=== PATIENT | male | born 1950 | race Caucasian/White ===

== ENCOUNTER → 2021-09-08 | Outpatient (CLI) | payer OTHER ==
[~2021-09-08] MED LIST: ARNUITY ELLIPT50 MCG NASAL; CARDIZEM CD120 MG PO; CEPHALEXIN 250250 M1 PO; DOXYCYCLINE 10100 MG PO; LIPITOR 10 MG10 M1 PO; PRILOSEC OTC20 MG PO; PRINIVIL20 M1 PO; SINGULAIR 10 MG10 M1 PO
== END ==
LOC: ULTRA 11:07
PROVIDERS: ATTEND Family Medicine
DX: R60.0 Localized edema (principal)

== ENCOUNTER → 2021-09-08 | Outpatient (CLI) | payer OTHER | LOC: CAT 09-01 15:54 | PROVIDERS: ATTEND Family Medicine | DX: Z13.6 Encounter for screening for cardiovascular disorders (principal); I25.10 Atherosclerotic heart disease of native coronary artery without angina pectoris; E78.00 Pure hypercholesterolemia, unspecified ==

== ENCOUNTER → 2021-09-22 | Outpatient (CLI) | payer OTHER | LOC: SJCVC 13:13 | PROVIDERS: ATTEND Internal Medicine | DX: R94.31 Abnormal electrocardiogram [ECG] [EKG] (principal); I44.0 Atrioventricular block, first degree; I45.10 Unspecified right bundle-branch block; R93.1 Abnormal findings on diagnostic imaging of heart and coronary circulation; E78.5 Hyperlipidemia, unspecified; I10 Essential (primary) hypertension; G47.30 Sleep apnea, unspecified; Z13.220 Encounter for screening for lipoid disorders; Z79.899 Other long term (current) drug therapy; Z88.2 Allergy status to sulfonamides; Z88.8 Allergy status to other drugs, medicaments and biological substances ==

== ENCOUNTER → 2021-10-08 | Outpatient (CLI) | payer OTHER | LOC: SJCVCIMAG 10:59 | PROVIDERS: ATTEND Internal Medicine | DX: I08.8 Other rheumatic multiple valve diseases (principal); I49.3 Ventricular premature depolarization; R00.0 Tachycardia, unspecified; I44.0 Atrioventricular block, first degree; R93.1 Abnormal findings on diagnostic imaging of heart and coronary circulation; E78.5 Hyperlipidemia, unspecified; G47.30 Sleep apnea, unspecified; I10 Essential (primary) hypertension; I25.10 Atherosclerotic heart disease of native coronary artery without angina pectoris; Z88.2 Allergy status to sulfonamides; Z88.0 Allergy status to penicillin; Z79.899 Other long term (current) drug therapy ==